=== PATIENT | female | born 1970 | race Caucasian/White ===

== ENCOUNTER 2023-07-15 07:46 | Outpatient (CLI) | payer BC ==
[2023-07-15] MEDS ORDERED: Iopamidol 300 61% 100 ML VIAL FS ONE (10:48)
== END 2023-07-15 07:47 | disposition home or self-care (01) ==
LOC: CSHCT 07:46
PROVIDERS: ATTEND Internal Medicine Hematology & Oncology
DX: K76.9 Liver disease, unspecified (principal); C18.7 Malignant neoplasm of sigmoid colon
CPT/HCPCS: 74160

== ENCOUNTER 2023-12-29 09:14 | Outpatient (CLI) | payer BC ==
[2023-12-29] MEDS ORDERED: Iopamidol 300 61% 100 ML VIAL FS ONE (13:18)
== END 2023-12-29 09:15 | disposition home or self-care (01) ==
LOC: CSHCT 09:14
PROVIDERS: ATTEND Internal Medicine Hematology & Oncology
DX: K76.89 Other specified diseases of liver (principal); C18.7 Malignant neoplasm of sigmoid colon
CPT/HCPCS: 74160